=== PATIENT | male | born 1985 | race Caucasian/White ===

== ENCOUNTER 2024-12-28 01:03 | Emergency (ER) | payer BC ==
[2024-12-28] MEDS: Acetaminophen/oxyCODONE 325-5 MG Tab PO ONE (02:41)
[2024-12-28] MEDS: Fluorescein 1 MG Ophth Strip EYELF ONE (02:41)
[2024-12-28] MEDS: Proparacaine 0.5% Ophth Soln 15 ML Bottle EYELF ONE (02:41)
[2024-12-28] MEDS: Fluorescein 1 MG Ophth Strip ONE (02:41)
[2024-12-28] MEDS: Ofloxacin 0.3% Ophth Soln 5 ML Bottle EYELF ONE (03:14)
== END 2024-12-28 03:20 | disposition home or self-care (01) ==
LOC: JD.ED 01:03
DX: S05.02XA Injury of conjunctiva and corneal abrasion without foreign body, left eye, initial encounter (principal); F17.210 Nicotine dependence, cigarettes, uncomplicated; M19.90 Unspecified osteoarthritis, unspecified site; Z79.899 Other long term (current) drug therapy; X58.XXXA Exposure to other specified factors, initial encounter; Y99.0 Civilian activity done for income or pay
CPT/HCPCS: 99283; A9270; J3490